=== PATIENT | male | born 1995 | race Caucasian/White ===

== ENCOUNTER 2017-02-19 20:49 | Emergency (ER) | payer OTHER ==
[2017-02-19 21:23] VITALS: TEMP 98.7; BMI 39.4
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
[2017-02-19] MEDS ORDERED: DIPHTH,PERTUSS(ACELL),TET VAC 0.5 ML VIAL IM ONE (21:24)
[2017-02-19] MEDS ORDERED: AMOX TR/POT CLAV 875MG/125MG TABLETS (FP) PO ONE (21:24)
[2017-02-19] MEDS ORDERED: HIV POST EXPOSURE PROPHYLAXIS KIT NR ONE (21:35)
[2017-02-19] MEDS ORDERED: AMOX TR/POT CLAV 875MG/125MG TABLETS (FP) ONE (21:36)
[2017-02-19] MEDS ORDERED: HIV POST EXPOSURE PROPHYLAXIS KIT PO ONE (21:45)
[2017-02-19 22:26] LABS: BASOPHIL 0.3 % (0-2.0); EOSINOPHIL 0.1 % (0-4.5); MCH 31.1 pg (25.7-33.7); MCHC 34.6 g/dl (32.0-35.9); MEAN PLT VOLUME 8.5 fl (7.5-11.1); NEUTROPHILS 85.5 % (42.8-82.8); PLATELET COUNT 251 K/MM3 (134-434); RDW 12.5 % (11.9-15.9); WHITE BLOOD COUNT 17.4 K/mm3 (4.0-10.0)
[2017-02-19 22:55] LABS: ALBUMIN 4.6 g/dl (3.4-5.0); ANION GAP 5 (8-16); CALCIUM 9.2 mg/dL (8.5-10.1); CHOLESTEROL 185 mg/dL (50-200); CO2 27 mmol/L (21-32); CREATININE 1.5 mg/dL (0.7-1.3); GLUCOSE,RANDOM 115 mg/dL (74-106); LDH 223 U/L (87-241); SGOT/AST 27 U/L (15-37); SGPT/ALT 37 U/L (12-78); TOT PROT 7.9 g/dl (6.4-8.2); URIC ACID 7.4 mg/dL (2.6-7.2)
[2017-02-19 22:57] LABS: ALK PHOS 62 U/L (45-117); BILIRUBIN,TOTAL 0.8 mg/dL (0.2-1.0)
[2017-02-19 22:59] VITALS: BP 161/80; PULSE 100
[2017-02-19 23:08] LABS: HIV 1 & 2 AB NEGATIVE
[2017-02-19 23:09] LABS: HIV 1 AGp24 NEGATIVE
[2017-02-21 06:11] LABS: HEP B SURFACE AB Non Reactive (.)
--- NOTE | 2017-02-27 09:50 | EKG ---
Test Reason : Blood Pressure : / mmHG Vent. Rate : 119 BPM Atrial Rate : 119 BPM P-R Int : 176 ms QRS Dur : 092 ms QT Int : 308 ms P-R-T Axes : 065 018 029 degrees QTc Int : 433 ms SINUS TACHYCARDIA OTHERWISE NORMAL ECG WHEN COMPARED WITH ECG OF 11-DEC-2014 14:17, NO SIGNIFICANT CHANGE WAS FOUND Confirmed by GUERLINE BAIRD MD ([id number]) on 02/27/2017 9:50:15 AM Referred By: Confirmed By:GUERLINE BAIRD MD
== END 2017-02-20 00:11 | disposition home or self-care (01) ==
LOC: JER 20:49
PROC: 3E0234Z Introduction of Serum, Toxoid and Vaccine into Muscle, Percutaneous Approach (ICD-10-PCS; principal; 2017-02-19)
DX: Z77.21 Contact with and (suspected) exposure to potentially hazardous body fluids (principal); S60.512A Abrasion of left hand, initial encounter; S60.511A Abrasion of right hand, initial encounter; Y35.891A Legal intervention involving other specified means, law enforcement official injured, initial encounter; Y93.89 Activity, other specified; Y92.9 Unspecified place or not applicable; Y99.8 Other external cause status
CPT/HCPCS: 36415; 73130-TC-LT; 73130-TC-RT; 80053; 82465; 82977; 83615; 84100; 84478; 84550; 85025; 86704; 86706; 87340; 87389; 93005; 93010; 99281-25

== ENCOUNTER 2017-09-21 18:21 | Emergency (ER) | payer OTHER ==
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
[2017-09-21 18:41] VITALS: BP 154/92; PULSE 95; TEMP 98.1; BMI 40.3
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
== END 2017-09-21 19:32 | disposition home or self-care (01) ==
LOC: JER 18:21 → JERFT 18:21
DX: S60.512A Abrasion of left hand, initial encounter (principal); W25.XXXA Contact with sharp glass, initial encounter; Y35.491A Legal intervention involving other sharp objects, law enforcement official injured, initial encounter; Y93.89 Activity, other specified; Y92.89 Other specified places as the place of occurrence of the external cause; Y99.0 Civilian activity done for income or pay
CPT/HCPCS: 99281-25

== ENCOUNTER 2018-03-31 17:39 | Emergency (ER) | payer OTHER ==
[2018-03-31 17:44] VITALS: BP 142/90; PULSE 82; TEMP 98; BMI 33.5
--- NOTE | 2018-03-31 18:03 | PDOC ---
History of Present Illness - General Chief Complaint: Injury Stated Complaint: INJURY/[employer] Time Seen by Provider: 03/31/18 17:55 Past History - Past Medical History Allergies/Adverse Reactions: Allergies Allergy/AdvReac Type Severity Reaction Status Date / Time No Known Allergies Allergy Verified 03/31/18 17:44 Home Medications: Ambulatory Orders NK [No Known Home Medication] 08/20/17 COPD: No - Immunization History Immunization Up to Date: Yes - Suicide/Smoking/Psychosocial Hx Smoking History: Never smoked Have you smoked in the past 12 months: No Number of Cigarettes Smoked Daily: 1 Hx Alcohol Use: No Drug/Substance Use Hx: No Substance Use Type: None *Physical Exam - Vital Signs Last Vital Signs Temp Pulse Resp BP Pulse Ox 98 F 82 18 142/90 99 03/31/18 17:42 03/31/18 17:42 03/31/18 17:42 03/31/18 17:42 03/31/18 17:42 ED Treatment Course - RADIOLOGY Radiology Studies Ordered: Category Date Time Status ELBOW-LEFT [RAD] Stat Radiology 03/31/18 18:03 Ordered *DC/Admit/Observation/Transfer Diagnosis at time of Disposition: Abrasion Elbow pain Qualifiers: Laterality: left Qualified Code(s): M25.522 - Pain in left elbow - Discharge Dispostion Disposition: HOME Condition at time of disposition: Stable Decision to Admit order: No - Referrals Referrals: Roberto Javier [Primary Care Provider] - - Patient Instructions Additional Instructions: Your x-rays negative for fracture. You have abrasions to your elbow, alcala and hand. You may gently wash the areas with soap and water. Pat dry and then use bacitracin. He may apply ice to the elbow He may take Motrin 800 mg every 8 hours as needed for pain. Please follow up with her primary care provider this week. Return to the emergency department for any signs of infection to the wounds including pus, redness around the site, fevers, or if you have any changes in your symptoms. - Post Discharge Activity Forms/Work/School Notes: Back to Work
== END 2018-03-31 19:08 | disposition home or self-care (01) ==
LOC: JERFT 17:39
DX: S50.312A Abrasion of left elbow, initial encounter (principal); S60.512A Abrasion of left hand, initial encounter; Y35.891A Legal intervention involving other specified means, law enforcement official injured, initial encounter; Y93.89 Activity, other specified; Y92.89 Other specified places as the place of occurrence of the external cause; Y99.0 Civilian activity done for income or pay
CPT/HCPCS: 73070-TC-LT-FY; 99281-25

== ENCOUNTER 2018-11-04 20:40 | Emergency (ER) | payer OTHER | END 2018-11-04 21:59 | disposition home or self-care (01) | LOC: JERFT 20:40 ==

== ENCOUNTER 2023-06-29 15:09 | Emergency (ER) | payer OTHER ==
[2023-06-29 15:22] VITALS: BP 153/102; PULSE 86; RESP 18; TEMP 98.7; BMI 36.9
== END 2023-06-29 15:56 | disposition home or self-care (01) ==
LOC: FER 15:09
DX: S60.511A Abrasion of right hand, initial encounter (principal); S80.211A Abrasion, right knee, initial encounter; S80.212A Abrasion, left knee, initial encounter; X58.XXXA Exposure to other specified factors, initial encounter
CPT/HCPCS: 99283-25